=== PATIENT | male | born 2005 | race Caucasian/White ===

== ENCOUNTER 2025-08-09 08:13 | Emergency (ER) | payer BC, SELFPAY ==
--- NOTE | ~2025-08-09 | XR_ITS ---
EXAMINATION: XR HIP, RIGHT CLINICAL INFORMATION: pain, injury COMPARISON: None available. TECHNIQUE: AP pelvis, and 2 views of the right hip. FINDINGS: No fracture, dislocation, or suspicious bone lesion. Normal alignment. Normal joint spaces. Normal acetabular coverage bilaterally. Normal femoral head contour without evidence of AVN. No soft tissue abnormalities are noted. XR/XR hip RT w [id number] IMPRESSION: Normal right hip. Electronically signed by: Kevyn Mercado MD 08/09/2025 09:18 AM EDT
--- NOTE | 2025-08-09 08:14 | ED_ITS ---
HPI - General Adult General Chief complaint: Extremity Injury, Lower Stated complaint: POP/CRACK R GROIN/HIP WHILE DOING LUNGES Time Seen by Provider: 08/09/25 08:14 Source: patient and EMS Mode of arrival: EMS Limitations: no limitations History of Present Illness ED Provider: Carrie Garcia PA-C HPI narrative: This is a 20 year old male with a history of left knee effusion, Raynaud's sy ndrome, and alopecia that presents for evaluation of right groin pain. He was at [employer] training this morning doing lunges, he lunged with his left leg forward and right leg back while holding 40 lbs of weights and he heard a loud pop in the right groin and began to experience pain. He states that the pain is worse with standing and better with laying down, pain is also worse if he lays on his right side. He states that pain is a 7/10 laying down and an 8-9/10 with standing. He has been able to put some weight on the leg but it is very painful. He did not take any medication for the pain, the ambulance was called immediately. Related Data Allergies Allergy/AdvReac Type Severity Reaction Status Date / Time No Known Allergies Allergy Verified 08/09/25 08:22 Review of Systems Constitutional: Constitutional: Reports as per HPI Eyes: Eyes: Reports as per HPI ENT: Reports as per HPI Cardiovascular: Cardiovascular: Reports as per HPI Respiratory: Respiratory: Reports as per HPI Gastrointestinal: Gastrointestinal: Reports as per HPI Genitourinary: Genitourinary: Reports as per HPI Musculoskeletal: Musculoskeletal: Reports as per HPI Integumentary/Breasts: Skin/Breast: Reports as per HPI Neurologic: Reports as per HPI Psychiatric: Psychiatric: Reports as per HPI Endocrine: Endocrine: Reports as per HPI Hematologic/Lymphatic: Hematologic/Lymphatic: Reports as per HPI Allergic/Immunologic: Allergic/Immunologic: Reports as per HPI PMF Past Medical History Attestation statement: The following information was validated with the patient. Source: old records reviewed and nursing notes reviewed Physical Exam ED Vital Signs: Vital Signs - 24 hr 08/09/25 08:19 08/09/25 08:59 08/09/25 10:06 Temperature 97.5 F 97.3 F Pulse Rate 88 70 70 Respiratory Rate 16 16 16 Blood Pressure 115/75 136/79 136/79 Pulse Oximetry 100 98 98 Oxygen Delivery Method Room Air Room Air Room Air BMI result Body Mass Index 26.3 Const General: cooperative, alert and awake Nutritional Appearance: well nourished Orientation/consciousness: oriented to person, oriented to place, oriented to time and patient oriented x3 HENMT Head: Yes normal to inspection, Yes normocephalic and Yes atraumatic Ears: hearing grossly normal bilaterally and external ears normal General nose exam: Normal external nose present, no nasal discharge noted and no epistaxis Face and sinus: Yes normal facial exam Mouth: Normal oral and palatal mucosa present, no drooling and no muffled voice Eyes General: appearance normal, both eyes and all related structures Periorbital: periorbital findings normal Eyelids: Yes eyelids normal Conjunctivae: conjunctivae normal Pupils: Equal, round and reactive pupils present EOM: EOMs intact bilaterally Neck Neck: Yes normal visual inspection Resp Effort & Inspection: normal respiratory effort Back/Spine/Pelvis Other: pain with right hip ROM Neuro General: oriented to person, oriented to place, oriented to time and patient oriented x3 Cranial nerves: Yes Equal, round and reactive pupils present Cognition (Neuro): normal cognition Extrem General: Yes normal to inspection, Yes full ROM and Yes capillary refill normal Psych Appearance: grossly normal Mental Status: mental status grossly normal Affect: normal affect Attitude: cooperative Thought process: Normal thought process present Thought content: Normal thought content present Insight: Good insight present (Psych) Medications Administered Discontinued Medications Generic Name Dose Route Start Last Admin Trade Name Freq PRN Reason Stop Dose Admin Ketorolac Tromethamine 15 mg 08/09/25 08:28 08/09/25 08:59 Ketorolac Tromethamine 15 Mg/Ml Vial IM 08/09/25 08:29 15 mg ONCE ONE Administration Medical Decision Making Medical Decision Making [facility] Narrative: Patient is a 20 year old assigned male at with a history of Raynaud's and alopecia presenting to the emergency department today with right hip / groin pain. Patient's physical exam was as noted in the physical exam portion of this note and consistent with a right groin strain. Patient's right hip / pelvis x-ray showed no acute process. I explained my physical exam findings as well as all test results to the patient. I answered all questions asked by the patient. I stressed the importance of the patient taking his medication as directed (either prescribed or as the over the counter packaging recommends). I stressed the importance of the patient following up with his primary care provider. I stressed the importance of the patient returning to the emergency department immediately if his symptoms were to worsen or if he were to develop any dizziness, shortness of breath, difficulty breathing, chest pain, blurry vision, loss of vision, nausea, vomiting, abdominal pain, fever, chills, back pain, or any other complaints. Patient verbalized agreement and understanding with this treatment plan and discharge. Differential Diagnosis Differential Diagnoses: The differential diagnosis associated with the presentation includes Right hip strain Right groin strain Right groin sprain Right hip pain Admission/Observation Consideration of admission/observation: Escalation of care including admission/observation considered Patient would have been admitted to the hospital had his work up had any findings where hospital admission was appropriate and his clinical presentation warranted hospital admission. Independent Interpretation I performed an independent interpretation of an: Plain X-Ray Interpretation: My interpretation is in agreement with the radiologist's impression of this imaging study. Reason for Exam: pain, injury EXAMINATION: XR HIP, RIGHT CLINICAL INFORMATION: pain, injury COMPARISON: None available. TECHNIQUE: AP pelvis, and 2 views of the right hip. FINDINGS: No fracture, dislocation, or suspicious bone lesion. Normal alignment. Normal joint spaces. Normal acetabular coverage bilaterally. Normal femoral head contour without evidence of AVN. No soft tissue abnormalities are noted. XR/XR hip RT w [id number] IMPRESSION: Normal right hip. Electronically signed by: Kevyn Mercado MD 08/09/2025 09:18 AM EDT RP Dictated By: Kevyn Mercado MD Signed By: Electronically signed by Kevyn Mercado MD 08/09/25 0918 Radiology Impression Discussion of test interpretation with radiology: I have reviewed the radiologist's reading. Independent Historian Clinical information obtained from an independent historian. History obtained from or confirmed by: EMS (EMS provided additional history and confirmed the history provided by the patient. ) Discharge Plan Discharge Clinical Impression: Groin strain Patient Disposition: Home, Self-Care Instructions: Groin Strain (ED) Additional Instructions: Your right hip and pelvis x-ray showed no evidence of acute aura injury. I believe you strained / sprained your right groin and should follow up with physical therapy which your primary care provider has to arrange. IF you are prescribed home medications and/or you are taking over the counter medications at home - it is very important you continue to do so as prescribed / directed unless told otherwise. Follow up with a primary care provider. Return to the emergency department immediately if your symptoms worsen or if you develop any numbness, tingling, dizziness, shortness of breath, difficulty breathing, chest pain, blurry vision, loss of vision, nausea, vomiting, abdominal pain, fever, chills, back pain, or any other complaints. If you do not have a primary care provider - call any of the below numbers to establish and follow up with a primary care provider. [facility] Primary Care ([place]) [phone] [place] [address], [address] [facility] Primary Care ([address] [place]) [phone] [place] [address], [address] [facility], [address] [facility] Primary Care ([address] [place]) [phone] [place] [address], [address] [facility], [address] [facility] Primary Care ([place]) [phone] [place] [address], [address] [facility], [address] [facility] Family Medicine [phone] [address] [facility], [address] Please see the information below about our Patient Portal. If you are not yet enrolled in the [facility] Patient Portal, you will receive an enrollment email invitation following your visit to any [facility] care setting. You may also self-enroll in the Patient Portal by visiting our website: [email or web address] The following information is required to access the Patient Portal: - Your [facility] Medical Record Number - Your personal home email address (must match what is in your electronic medical record, Registration staff can assist with this) - Name - Date of Capabilities of the Patient Portal: - Message some providers - View upcoming appointments - Access your health summary, medical history, and visit history - View current conditions and allergies - View procedure and lab results - View your medications, including guidelines, side effects, and precautions - Complete pre-appointment questionnaires requested by your provider - Ready summary reports of your office visits and procedures To access the Patient Portal Mobile Che[employer], follow these directions: - Search [employer] in the Che[employer] Store or [employer] - Download the Chepe - Search for [facility] - Enter your login/password Stand Alone Forms: Work/School Release Interventions: ED Discharge Assessment Last Done: 08/09/25 10:06 Discharge Date/Time: 08/09/25 10:06 Print Language: Uzbek
[2025-08-09 08:19] VITALS: BP 115/75; PULSE 88; RESP 16; TEMP 36.4; O2SAT 100; BMI 26.3
--- OUTSIDE RECORDS SUMMARY | 2025-08-09 08:47 | XMS_ITS | Encounter Summary ---
Author Organization [facility] Address [address] [place] [address] Phone Care Team Providers Care Whiskey Proof Reader Name Role Phone Paulette Yap MD Primary Care Provider [phone] Rodolfo Patton DO Primary Care Provider [phone] Encounter Details Date Type Department Care Team (Late st Contact Info) Description 10/08/2024 Ancillary Orders [facility], X-Ray - [facility] [address] [place] [address] Jaimie Tapia, [facility] [address] [facility], [facility] [address] [place] [address] [email or web address] Chronic cough (Primary Dx) Social History Tobacco Use Types Packs/Day Years Used Date Smoking Tobacco: Never Smokeless Tobacco: Never Alcohol Use Standard Drinks/Week Comments No 0 (1 standard drink = 0.6 oz pur e alcohol) Education Answer Date Recorded Are you interested in more education? Not on iliana e 03/05/2023 Are you concerned about learning? Not on file 03/05/2023 No 03/05/2023 No 03/05/2023 Digital Access Answer Date Recorded No 04/02/2023 No 04/02/2023 Reliable internet access at home? Not on file 04/02/2023 Device with a working camera? Not on file Sex and Gender Information Value Date Recorded Sex Assigned at Male 03/20/2025 9:17 PM EDT Legal Sex Male 8:43 PM EDT Gender Identity Male 03/20/2025 9:17 PM EDT Sexual Orientation Straight 03/20/2025 9: 17 PM EDT documented as of this encounter Plan of Treatment Not on file documented as of this encounter Results * XR CHEST PA AND LATERAL 2 VIEWS (10/08/2024 12:10 PM EST) Anatomical Region Laterality Modality Chest Computed Radiogr aphy 10/08/2024 12:1 1 PM EST Impressions 10/08/2024 12:12 PM EST No acute cardiopulmonary abnormality. In particular, no evidence of pneumonia. Narrative 10/08/2024 12:12 PM EST XR CHEST PA AND LATERAL 2 VIEWS Referring clinician's provided indication for this examination in Epic: Cough COMPARISON: Similar studies are unavailable for comparison at this time. FINDINGS: Devices/Tubes/Lines: None. Lungs: Normal. The lungs are clear. No focal consolidation or pulmonary edema. Pleura: Normal. No pleural effusion or pneumothorax. Heart/Mediastinum: Normal heart and mediastinum. Bones/Soft Tissues: Normal. No significant skeletal abnormality. Procedure Note Sparkle Jolly MD - 10/08/2024 XR CHEST PA AND LATERAL 2 VIEWS Referring clinician's provided indication for this examination in Epic:Cough COMPARISON: Similar studies are unavailable for comparison at this time. FINDINGS: Devices/Tubes/Lines: None. Lungs: Normal. The lungs are clear. No focal consolidation or pulmonaryedema. Pleura: Normal. No pleural effusion or pneumothorax. Heart/Mediastinum: Normal heart and mediastinum. Bones/Soft Tissues: Normal. No significant skeletal abnormality. IMPRESSION: No acute cardiopulmonary abnormality. In particular, no evidence ofpneumonia. Jaimie Tapia [employer] IMG XR [address] Final Result documented in this encounter Visit Diagnoses Diagnosis Chronic cough- Primary Cough Chronic cough Cough documented in this encounter Care Teams Whiskey Proof Reader Relationship Specialty Start Date End Date Paulette Yap MD [address] [place] [address], [address] [place] [address] [email or web address] PCP - General Pediatrics 04/23/23 11/08/24 Rodolfo Patton DO [address] [place] [address], [address] [place] [address] [email or web address] PCP - General Family Medicine 11/09/24 documented as of this encounter Additional Source Comments The information contained in this document represents components of the legal health record. It is not the complete legal health record.[facility]
--- OUTSIDE RECORDS SUMMARY | 2025-08-09 08:47 | XMS_ITS | Encounter Summary ---
Author Organization [facility] Address [address] [place] [address] Phone Care Team Providers Care Sugar Cane Grower Name Role Phone Paulette Yap MD Primary Care Provider [phone] Encounter Details Date Type Department Care Team (Late st Contact Info) Description 06/16/2017 Conversion Encounter [facility] Pediatrics - [address], [address] [place] [address] Paulette Yap MD [address] [place] [address] Social History Tobacco Use Types Packs/Day Years Used Date Smoking Tobacco: Never Assessed Sex and Gender Information Value Date Recorded Sex Assigned at Male 10/16/2024 6:42 AM EST Legal Sex Male 10:21 AM EST Gender Identity Male 10/16/2024 6:42 AM EST Sexual Orientation Choose not to answer 10/25/20 24 2:38 PM EST documented as of this encounter Plan of Treatment Not on file documented as of this encounter Visit Diagnoses Not on filedocumented in this encounter Care Teams Sugar Cane Grower Relationship Specialty Start Date End Date Paulette aYp MD [address] [place] [address] PCP - General Pediatrics 07/26/17 11/20/24 documented as of this encounter
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
--- OUTSIDE RECORDS SUMMARY | 2025-08-09 08:47 | XMS_ITS | Encounter Summary ---
Author Organization [facility] Address [address] [place] [address] Phone Care Team Providers Care Senior Systems Administrator Name Role Phone Pcp, Not Required Primary Care Provider Paulette Cummins MD Primary Care Provider Rodolfo Patton DO Primary Care Provider [phone] Encounter Details Date Type Department Care Team (Late st Contact Info) Description 2018 Ancillary Orders [address] [address] Rodolfo Siu PA-C [address] [place] [address] Orthopedics & Sports Medicine, [place], [place] [id number] [email or web address] Right ankle pain, unspecified chronicity Social History Tobacco Use Types Packs/Day Years Used Date Smoking Tobacco: Never Smokeless Tobacco: Never Alcohol Use Standard Drinks/Week Comments No 0 (1 standard drink = 0.6 oz pur e alcohol) Sex and Gender Information Value Date Recorded Sex Assigned at Male 03/20/2025 9:17 PM EDT Legal Sex Male 8:43 PM EDT Gender Identity Male 03/20/2025 9:17 PM EDT Sexual Orientation Straight 03/20/2025 9: 17 PM EDT documented as of this encounter Plan of Treatment Not on file documented as of this encounter Results * XR ANKLE 3 OR MORE VIEWS (RIGHT) (2018 3:10 PM EST) Narrative Jessica Amaya - 2018 3:10 PM EST This image report has been auto-finalized and has not been read by a Radiologist. Interpretation has been included in the provider encounter note for this date of service. Rodolfo Siu PA-C IMG XR LOWER EXTREMITY Final Result documented in this encounter Visit Diagnoses Diagnosis Right ankle pain, unspecified chronicity Right ankle pain, unspecified chronicity documented in this encounter Additional Health Concerns Infection Onset Date Last Indicated Resolved Time Influenza 12/05/2019 12/05/2019 12/12/2019 1:22 AM EST documented as of this encounter Care Teams Senior Systems Administrator Relationship Specialty Start Date End Date Pcp, Not Required [address] [place] [address] PCP - General 12/09/17 04/22/23 Paulette Yap MD [address] [facility] [address] [place] [address] [email or web address] PCP - General Pediatrics 04/23/23 11/08/24 Rodolfo Patton DO [address] [facility] [address] [address] [place] [address] [email or web address] PCP - General Family Medicine 11/09/24 documented as of this encounter Additional Source Comments The information contained in this document represents components of the legal health record. It is not the complete legal health record.[facility]
--- OUTSIDE RECORDS SUMMARY | 2025-08-09 08:47 | XMS_ITS | Clinical Summary ---
Author Organization [facility] Address [address] [place] [phone] Phone Care Team Providers Care Bench Grinder Name Role Phone Unavailable Primary Care Provider Unavailabl e Allergies No known active allergies Medications No known medications Active Problems Problem Noted Date Diagnosed Date History of COVID-19 10/21/2022 BMI 85th to less than 95th p ercentile with athletic build, pediatric 03/28/2020 Seasonal allergic rhinitis due to pollen 020 Assessment & Plan (03/28/2020 9:16 AM EDT): Responds well to Zyrtec Acne 08/24/2018 Assessment & Plan (08/24/2018 3:54 PM EDT): Mild Adolescent scoliosis 07/26/2017 Overview (07/26/2017): mild RIGHT thoracolumbar curve Assessment & Plan (11/18/2021 4:49 PM EST): Right thoracolumbar curve Alopecia 07/25/2017 Overview (08/24/2018): In future should screen TSH, free T4 due to association of alopecia areata/totalis with autoimmune thyroid disease Iat this point (2016), growth is good). (DJ) 2018: stable, partial; dad has same issue plus absent eyebrows. Shaved head and no concerns. Assessment & Plan (07/26/2017 2:39 PM EDT): Stable, no further hair loss. No current Tx Asthma, intermittent 07/25/2017 Overview (07/26/2017): Viral induced. No longer triggered by cold air or exercise. Assessment & Plan (07/26/2017 2:45 PM EDT): Used albuterol 1-2x in past year associated with URI Resolved Problems Problem Noted Date Diagnosed Date Resolved Date Failed vision screen 03/28/2020 022 Immunizations Immunization Administration Dates Next Due COVID-19 Pfizer, monovalent, 12+ years 1 DTaP 05/30/2009,06/17/2006 DTaP / Hep B / IPV 2005,2005, 005 H1N1 10/28/2009,09/08/2009 HPV Vaccine 9 Valent 03/28/2020,08/24/2018 Hep B, ped/adol 2005 Hib (PRP-T) 03/30/2006, 5,2005,03/17 IPV 05/30/2009 Influenza 07/16/2009, 8,09/13/2007,09/21,2005,2005 Influenza, injectable, quadr ivalent, preservative free 09/22/2022,08/23/2021,08/02/2020,08/05,08/24/2018,09/18/2017,09/04/2013 Influenza, injectable, trivalent 09/24/2012,1002/2011,09/23/2010 Influenza, intranasal, quadrivalent 09/28/2015,1 11/14/2013 MMR 06/04/2010,03/30/2006 Meningococcal Conj (Menactra) MCV4P 11/18/2021,0 05/23/2016 Pneumococcal Conjugate 03/30/2006,2004,2005,03/17 Tdap 05/23/2016 Varicella 06/04/2010,01/05/2006 Social History Tobacco Use Types Packs/Day Years Used Date Smoking Tobacco: Never Smokeless Tobacco: Never Comments:Denies any substanc e use. Alcohol Use Standard Drinks/Week Comments Never 0 (1 standard drink = 0.6 oz pur e alcohol) Denies any substance use. Hunger/Food Answer Date Recorded In the last 12 months, did y ou or your family ever eat less than you felt you should because there wasn't enough money for food? No 11/18/2021 Stable Housing Answer Date Recorded Are you worried that in the next 2 months you may not have stable housing? No 11/18/2021 Transportation Concerns Answer Date Rec orded In the last 12 months, have you or your family ever had to go without healthcare because you didn't have a way to get there? No 11/18/2021 Hazards in Home Answer Date Recorded Think about the place you li ve. Do you have problems with any of the following? Pests (mice or roaches), mold, no/not working smoke detectors, water leaks, no window guards. No 2021 Financing Utilities Answer Date Recorde d In the last 12 months, has t he electric, gas, oil, or water company threatened to shut off your services in your home? No 11/18/2021 Safety at Home Answer Date Recorded Are you or your family worried about feeling saf e in your home? No 11/18/2021 Outside Support Answer Date Recorded Do you feel that you need mo re support from other people or programs to help you care for yourself or your family? No 11/18/2021 Understanding Health Concerns Answer Da te Recorded Do you need help understandi ng your or your child's healthcare needs (diagnosis, medications, plan, etc.)? No 11/18/2021 Financing Health Concerns Answer Date R ecorded In the last 12 months, was t here a time when your child needed to see a doctor or get medications or supplies but could not because of cost? No 11/18/2021 Missing School or Work Answer Date Jaswinder rded Did you or your child miss s chool or work because of a health problem that could have been avoided? No 11/18/2021 Sex and Gender Information Value Date Recorded Sex Assigned at Male 10/16/2024 6:42 AM EST Legal Sex Male 10:21 AM EST Gender Identity Male 10/16/2024 6:42 AM EST Sexual Orientation Choose not to answer 10/25/20 24 2:38 PM EST Last Filed Vital Signs Vital Sign Reading Time Taken Comments Blood Pressure 121/71 10/08/2024 11:17 AM EST Pulse 86 10/08/2024 11:17 AM EST Temperature 36.9 C (98.4 F) 10/08/2024 11:17 AM EST Respiratory Rate 18 10/08/2024 11:17 AM EST Oxygen Saturation 98% 10/08/2024 11:17 AM EST Inhaled Oxygen Concentration - - Weight 88 kg (194 lb) 10/08/2024 11:17 AM EST Height 175.3 cm (5' 9 ) 11/18/2021 4:14 PM EST Body Mass Index - - Plan of Treatment Health Maintenance Due Date Last Done Comments Men B Vaccine (1 of 2 - Standard) 2021 Influenza Vaccines (#1) 2025 09/22/20, 08/23/2021, 08/02/2020, Additional history exists COVID-19 Vaccine (4 - season) 2025 12/01/2021, 04/19/2021, 03/22/2021 DTaP,Tdap,and Td Vaccines (7 - Td or Tdap) 05/23/2026 05/23/2016, 05/30/2009, 06/17/2006, Additional history exists Hepatitis B Vaccines Completed 2005, 2005, 2005, Additional history exists HIB Vaccines Completed 03/30/2006, 07/2005, 2005, Additional history exists Pneumococcal Vaccine Completed 03/30/2006, 2005, 2005, Additional history exists IPV Vaccines Completed 05/30/2009, 07/2005, 2005, Additional history exists MMR Vaccines Completed 06/04/2010, 03/30/2006 Varicella Vaccines Completed 06/04/2010, 01/05/2006 HPV Vaccines Completed 03/28/2020, 08/24/2018 Meningococcal Vaccine Completed 11/18/2021, 016 Hepatitis A Vaccines Aged Out No long er eligible based on patient's age to complete this topic
--- OUTSIDE RECORDS SUMMARY | 2025-08-09 08:47 | XMS_ITS | Encounter Summary ---
Author Organization [facility] Address [address] [place] [address] Phone Care Team Providers Care Auto Body Repair Estimator Name Role Phone Pcp, Not Required Primary Care Provider Paulette Cummins MD Primary Care Provider Rodolfo Patton DO Primary Care Provider [phone] Encounter Details Date Type Department Care Team (Late st Contact Info) Description 2018 Ancillary Orders [facility] Orthopedics & Sports Medicine [address] [place] [id number] Rodolfo Siu PA-C [address] [place] [address] Orthopedics & Sports Medicine, [place], [place] [id number] [email or web address] Social History Tobacco Use Types Packs/Day Years [...] Diagnoses Not on filedocumented in this encounter Additional Health Concerns Infection Onset Date Last Indicated Resolved Time Influenza 12/05/2019 12/05/2019 12/12/2019 1:22 AM EST documented as of this encounter Care Teams Auto Body Repair Estimator Relationship Specialty Start Date End Date Pcp, Not Required [address] [place] [address] PCP - General 12/09/17 04/22/23 Paulette Yap MD [address] [facility] [place] [address] [email or web address] PCP - General Pediatrics 04/23/23 11/08/24 Rodolfo Patton DO [address] [place] [address] [address] [place] [address] [email or web address] PCP - General Family Medicine 11/09/24 documented as of this encounter Additional Source Comments The information contained in this document represents components of the legal health record. It is not the complete legal health record.[facility]
--- OUTSIDE RECORDS SUMMARY | 2025-08-09 08:47 | XMS_ITS | Encounter Summary ---
Author Organization [facility] Address [address] [place] [address] Phone Care Team Providers Care Band Instrument Maker Name Role Phone Pcp, Not Required Primary Care Provider Paulette Cummins MD Primary Care Provider Rodolfo Patton DO Primary Care Provider Encounter Details Date Type Department Care Team (Late st Contact Info) Description 04/16/2023 Ancillary Orders [facility], X-Ray - [facility] [address] [place] [address] Alexandria Cifuentes MD [address] [facility] [facility] 2 [place] [address] [email or web address] Acute pain of left knee Social History Tobacco Use Types Packs/Day Years [...] as of this encounter Results * XR KNEE 4 OR MORE VIEWS (LEFT) (04/16/2023 11:15 AM EDT) Anatomical Region Laterality Modality Knee Left Computed Radiogr aphy 04/16/2023 5:27 PM EDT Impressions 04/16/2023 5:28 PM EDT No fracture or dislocation. Small suprapatellar joint effusion. Consider further evaluation with knee MRI. Narrative 04/16/2023 5:28 PM EDT XR KNEE 4 OR MORE VIEWS (LEFT) COMPARISON: FINDINGS: Left Knee: No fracture. Normal alignment. Normal joint spaces. Small suprapatellar joint effusion. Procedure Note Leonardo Talavera MD, KAT - 04/16/2023 XR KNEE 4 OR MORE VIEWS (LEFT) COMPARISON: FINDINGS: Left Knee: No fracture. Normal alignment. Normal joint spaces. Smallsuprapatellar joint effusion. IMPRESSION: No fracture or dislocation. Small suprapatellar joint effusion. Consider further evaluation with knee MRI. Alexandria Cifuentes MD IMG XR LOWER EXTREMITY F inal Result documented in this encounter Visit Diagnoses Diagnosis Acute pain of left knee Acute pain of left knee documented in this encounter Care Teams Band Instrument Maker Relationship Specialty Start Date End Date Pcp, Not Required [address] [place] [address] PCP - General 12/09/17 04/22/23 Paulette Yap MD [address] [place] [address], [address] [place] [address] PCP - General Pediatrics 04/23/23 11/08/24 Rodolfo Patton DO [address] [place] [address], [address] [place] [address] [email or web address] PCP - General Family Medicine 11/09/24 documented as of this encounter Additional Source Comments The information contained in this document represents components of the legal health record. It is not the complete legal health record.[facility]
[2025-08-09 08:59] VITALS: BP 136/79; PULSE 70; RESP 16; O2SAT 98
[2025-08-09 10:06] VITALS: BP 136/79; PULSE 70; RESP 16; TEMP 36.3; O2SAT 98
== END 2025-08-09 10:06 | disposition home or self-care (01) ==
PROVIDERS: Emergency Provider Emergency Medicine
DX: R10.31 Right lower quadrant pain (principal); R10.23 Pelvic and perineal pain bilateral; M79.604 Pain in right leg
CPT/HCPCS: 73502; 96372; 99283; 99284; J1885

== ENCOUNTER → 2025-08-09 08:28 | Outpatient (BNV) | payer BC, SELFPAY | PROVIDERS: Emergency Provider Emergency Medicine; Visit Provider Radiology Diagnostic Radiology | DX: S79.911A Unspecified injury of right hip, initial encounter (principal); X50.1XXA Overexertion from prolonged static or awkward postures, initial encounter | CPT/HCPCS: 73502 ==